=== PATIENT | male | born 1960 | race Caucasian/White ===

== ENCOUNTER → 2018-07-27 14:59 | Outpatient (CLI) | payer MEDICAID, SELFPAY ==
[2018-07-27 17:26] LABS: Absolute Lymphocyte Count 2.06 X10^3/ul (0.83-4.51); Absolute Neutrophil Count 5.9 X10^3/uL (2.0-7.7); Basophil# 0.04 X10^3/uL; Basophil% 0.5 % (0-1); Eosinophil# 0.06 X10^3/uL; Eosinophils% 0.7 % (0-5); Hematocrit 46.4 % (40-54); Hemoglobin 15.8 g/dl (13.0-16.5); Lymphocyte # 2.06 X10^3/ul (4.0); Lymphocyte % 23.2 % (19-41); Mean Corp Hgb Conc 34.1 g/gl (32-36); Mean Corpuscular Hgb 34.3 pg (27.0-32.0); Mean Corpuscular Volume 100.7 fL (80-94); Mean Platelet Vol. 9.8 fl (6.2-12.0); Monocyte# 0.79 X10^3/uL; Monocyte% 8.9 % (0-10); Neutrophil % 66.5 % (47-70); Platelet Count 184 K/mm3 (150-450); RBC Distribution Width CV 12.1 % (11.6-14.6); RBC Distribution Width SD 44.6 fl (35.1-43.9); Red Blood Count 4.61 M/mm3 (4.6-6.2); White Blood Count 8.9 K/mm3 (4.4-11.0)
[2018-07-27 17:27] LABS: POSITIVE COUNT NO; POSITIVE DIFFERENTIAL NO; POSITIVE MORPHOLOGY NO
[2018-07-27 17:29] LABS: International Normalized Ratio 1.1; Partial Thromboplast Time 28.1 Seconds (24.1-36.2); Prothrombin Time (Protime)PT. 13.7 SECONDS (11.7-14.9)
[2018-07-27 18:23] LABS: ALB/GLOB Ratio 0.9 RATIO (0.9-2.4); AST(SGOT) 29 U/L (15-37); Alanine Aminotransfer ALT/SGPT 53 U/L (16-61); Albumin, Serum 3.7 g/dL (3.2-5.0); Alkaline Phosphatase 138 U/L (45-117); Anion Gap 10 (5-15); BUN 8 mg/dL (7-18); BUN/Creat Ratio 7.4 RATIO (10-20); Calcium,Total 8.7 mg/dL (8.5-10.1); Chloride 104 mmol/L (98-107); Creatinine, Serum 1.08 mg/dL (0.70-1.30); EST Glomerular Filtration Rate 74 mL/min (>60); Est Glom Filt Rate - Afr Amer 90 mL/min (>60); Globulin 4.1 g/dL (2.2-4.2); Glucose 103 mg/dL (74-106); PSA,Total - Annual Screen 0.05 ng/mL (0.00-4.00); Protein, Total 7.8 g/dL (6.4-8.2); Sodium Level 140 mmol/L (136-145); Thyroid Stim Hormone (TSH) 1.01 uIU/mL (0.358-3.74)
== END ==
PROVIDERS: Family Provider Family Medicine Geriatric Medicine; PCP Family Medicine Geriatric Medicine; Visit Provider Family Medicine Geriatric Medicine
DX: Z01.818 Encounter for other preprocedural examination (principal); I10 Essential (primary) hypertension; Z12.5 Encounter for screening for malignant neoplasm of prostate; Z13.89 Encounter for screening for other disorder
CPT/HCPCS: 36415; 80053; 84153; 84443; 85025; 85610; 85730; G0103

== ENCOUNTER → 2018-07-30 05:38 | Outpatient (CLI) | payer MEDICAID, SELFPAY ==
--- NOTE | 2018-07-30 08:29 | STRESSREP ---
Stress Test Report Pharmacologic myocardial perfusion stress test. 58-year-old man with a history of abnormal EKG. Stress protocol: Resting EKG demonstrates normal sinus rhythm with a rate of [address] depression noted in leads II, III and aVF. 0.4 mg of regadenoson was infused per usual protocol followed by rapid intravenous saline flush injection continuous EKG monitoring was performed. The maximum heart rate attained was 114 bpm which was 71% maximum predicted heart rate the maximum workload was 1 metabolic equivalent. The resting blood pressure 138/74 with a peak blood pressure 158/88. No clinical angina was noted. Myocardial perfusion protocol. 12.0 mCi of technetium 99m sestamibi was injected at rest. 0.4 mg of regadenoson was infused per usual protocol peak infusion 36.0 mCi of technetium 99m sestamibi was injected stress images were obtained stress and rest images were reconstructed and compared in the short axis vertical long horizontal long axis. Gated images were also obtained Perfusion SPECT analysis: Review of the images demonstrated large defect noted in the basal to mid inferior wall as well as the lateral wall. The resting images demonstrate near complete reversibility of the above on the lateral wall as well as the mid inferior wall. The above is suggestive of inferolateral ischemia. Gated SPECT analysis: The gated ejection fraction is 44%. Severe inferior hypokinesis is present. Conclusion: Abnormal myocardial perfusion stress test with evidence of inferior lateral and mid inferior ischemia. Reduced ejection fraction.
== END ==
PROVIDERS: Family Provider Family Medicine Geriatric Medicine; PCP Family Medicine Geriatric Medicine; Referring Provider Family Medicine Geriatric Medicine; Visit Provider Family Medicine Geriatric Medicine
DX: I25.10 Atherosclerotic heart disease of native coronary artery without angina pectoris (principal); R94.31 Abnormal electrocardiogram [ECG] [EKG]
CPT/HCPCS: 78452; 93017; A9500; A4216; J2785

== ENCOUNTER → 2019-03-09 | Outpatient (CLI) | payer MEDICAID, SELFPAY ==
[2019-03-09 17:11] LABS: AST(SGOT) 22 U/L (15-37); Alanine Aminotransfer ALT/SGPT 39 U/L (16-61); Albumin, Serum 3.9 g/dL (3.2-5.0); Alkaline Phosphatase 140 U/L (45-117); Anion Gap 5 (5-15); BUN 13 mg/dL (7-18); BUN/Creat Ratio 12.6 RATIO (10-20); Calcium,Total 8.6 mg/dL (8.5-10.1); Chloride 107 mmol/L (98-107); Creatinine, Serum 1.03 mg/dL (0.70-1.30); EST Glomerular Filtration Rate 78 mL/min (>60); Est Glom Filt Rate - Afr Amer 95 mL/min (>60); Glucose 106 mg/dL (74-106); Potassium 3.7 mmol/L (3.5-5.1); Protein, Total 7.9 g/dL (6.4-8.2); Sodium Level 140 mmol/L (136-145); Thyroid Stim Hormone (TSH) 1.06 uIU/mL (0.358-3.74)
[2019-03-09 17:42] LABS: Absolute Lymphocyte Count 2.69 X10^3/ul (0.83-4.51); Basophil# 0.04 X10^3/uL; Basophil% 0.5 % (0-1); Eosinophil# 0.12 X10^3/uL; Eosinophils% 1.6 % (0-5); Hematocrit 46.7 % (40-54); Lymphocyte # 2.69 X10^3/ul (4.0); Lymphocyte % 35.3 % (19-41); Mean Corp Hgb Conc 34.3 g/gl (32-36); Mean Corpuscular Hgb 32.9 pg (27.0-32.0); Mean Corpuscular Volume 96.1 fL (80-94); Monocyte% 10.5 % (0-10); Neutrophil # 3.96 X10^3/uL (2.7-7.7); Platelet Count 179 K/mm3 (150-450); RBC Distribution Width CV 12.1 % (11.6-14.6); RBC Distribution Width SD 41.9 fl (35.1-43.9); Red Blood Count 4.86 M/mm3 (4.6-6.2); White Blood Count 7.6 K/mm3 (4.4-11.0)
[2019-03-09 17:44] LABS: POSITIVE COUNT NO; POSITIVE DIFFERENTIAL NO; POSITIVE MORPHOLOGY NO
== END | disposition home or self-care (01) ==
PROVIDERS: Family Provider Family Medicine Geriatric Medicine; PCP Family Medicine Geriatric Medicine; Visit Provider Family Medicine Geriatric Medicine
DX: R53.83 Other fatigue (principal)
CPT/HCPCS: 36415; 80053; 84443; 85025

== ENCOUNTER → 2019-08-04 14:29 | Outpatient (CLI) | payer MEDICAID, SELFPAY ==
[2018-08-04 09:56] VITALS: BMI 24.4
[2019-08-04 16:14] LABS: Hematocrit 42.7 % (40-54); Hemoglobin 14.6 g/dL (13.0-16.5); Mean Corp Hgb Conc 34.2 g/dL (32-36); Mean Corpuscular Volume 96.4 fL (80-94); Platelet Count 133 K/mm3 (150-450); RBC Distribution Width CV 12.2 % (11.6-14.6); RBC Distribution Width SD 43.4 fl (35.1-43.9); Red Blood Count 4.43 M/mm3 (4.6-6.2); White Blood Count 7.5 K/mm3 (4.4-11.0)
[2019-08-04 16:15] LABS: Absolute Lymphocyte Count 1.97 X10^3/uL (0.83-4.51); Absolute Neutrophil Count 4.7 X10^3/uL (2.0-7.7); Basophil# 0.04 X10^3/uL; Basophil% 0.5 % (0-1); Eosinophil# 0.13 X10^3/uL; Eosinophils% 1.7 % (0-5); Lymphocyte # 1.97 X10^3/ul (4.0); Lymphocyte % 26.4 % (19-41); Mean Platelet Vol. 9.9 fl (6.2-12.0); Monocyte# 0.63 X10^3/uL; Monocyte% 8.4 % (0-10); NRBC Flagged by Analyzer 0 % (0-5); Neutrophil # 4.68 X10^3/uL (2.7-7.7); Neutrophil % 62.9 % (47-70)
[2019-08-04 16:32] LABS: Vitamin D,25 Hydroxy 11.6 ng/mL (29.95-100.01)
[2019-08-04 16:35] LABS: ALB/GLOB Ratio 1.1 RATIO (0.9-2.4); AST(SGOT) 16 U/L (15-37); Alanine Aminotransfer ALT/SGPT 31 U/L (16-61); Albumin, Serum 3.8 g/dL (3.2-5.0); Alkaline Phosphatase 113 U/L (45-117); Anion Gap 5 (5-15); BUN 10 mg/dL (7-18); BUN/Creat Ratio 10.3 RATIO (10-20); Calcium,Total 8.7 mg/dL (8.5-10.1); Chloride 107 mmol/L (98-107); Creatinine, Serum 0.97 mg/dL (0.70-1.30); EST Glomerular Filtration Rate 84 mL/min (>60); Est Glom Filt Rate - Afr Amer 101 mL/min (>60); Globulin 3.6 g/dL (2.2-4.2); Glucose 124 mg/dL (74-106); PSA,Total - Annual Screen 0.04 ng/mL (0.00-4.00); Potassium 3.7 mmol/L (3.5-5.1); Protein, Total 7.4 g/dL (6.4-8.2); Sodium Level 139 mmol/L (136-145); Thyroid Stim Hormone (TSH) 0.92 uIU/mL (0.358-3.74)
== END ==
PROVIDERS: Family Provider Family Medicine Geriatric Medicine; PCP Family Medicine Geriatric Medicine; Visit Provider Family Medicine Geriatric Medicine
DX: I10 Essential (primary) hypertension (principal); R53.83 Other fatigue; Z12.5 Encounter for screening for malignant neoplasm of prostate
CPT/HCPCS: 36415; 80053; 82306; 84153; 84443; 85025; G0103

== ENCOUNTER 2020-03-06 15:41 | Emergency (ER) | payer MEDICAID, SELFPAY ==
[2019-10-18 10:29] VITALS: BMI 24.4
[2020-03-06] VITALS (8 sets, daily range): BP systolic 102–138; BP diastolic 77–94; PULSE 100–111; RESP 24–39; TEMP 35.8–37.1; O2SAT 83–100; BMI 24.9
--- NOTE | 2020-03-06 16:06 | NURSING ---
NO OLD EKGS
--- NOTE | 2020-03-06 16:08 | EKG12_ITS ---
Test Reason : CP Blood Pressure : / mmHG Vent. Rate : 100 BPM Atrial Rate : 100 BPM P-R Int : 168 ms QRS Dur : 114 ms QT Int : 396 ms P-R-T Axes : 053 064 186 degrees QTc Int : 510 ms Normal sinus rhythm Left ventricular hypertrophy with repolarization abnormality Cannot rule out Septal infarct , age undetermined Prolonged QT Abnormal ECG Confirmed by HAILE MOON ([id number]), loan expeditor DIANNE BRUCE ([id number]) on 03/12/2020 1:50:36 PM Referred By: ELIA Confirmed By:HAILE MOON
--- NOTE | 2020-03-06 16:10 | ED.DCSUM_ITS ---
History of Present Illness Chief Complaint: Chest Pain Informant: Patient Onset: Today Current Severity: Mild Maximum Severity: Moderate Narrative: Patient presents secondary to chest pain and shortness of breath. Patient states he woke up this morning with some central chest pressure. He also felt short of breath. He denies fever, chills, or cough. Patient does admit to being a light smoker throughout his life, but denies any history of lung disease. He does not use inhalers. In fact, the patient states he does not take any medication at home. Patient does have a history of aortic valve replacement and ascending aorta repair. He has a history of coronary disease, high cholesterol, and hypertension. When patient arrived to the ER was advised by nursing staff that his O2 sat was 85% on a nonrebreather mask. At the time of my examination his O2 sat was 98% on nonrebreather. - Past Medical History (1) Hypercholesteremia Status: Chronic (2) Ischemic cardiomyopathy Status: Chronic (3) H/O aortic valve replacement Status: Resolved Comment: AVR w/ # 29 [employer] 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 08/03/2012 (5) Hx of repair of ascending aorta Status: Resolved Past Medical History - Allergies and Home Meds Allergies/Adverse Reactions: Allergies varenicline [From Chantix] Adverse Reaction (Verified 03/06/20 15:45) upset stomach Primary Care Physician: Liu Potts Chi, MD [Primary Care Provider] - Prior records reviewed: Yes Past Medical History: - - Reviewed. 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 Smoking Status: Current every day smoker Review of Systems General: Denies: Chills, Fever Eyes: Denies: Visual changes - bilaterally ENT: Denies: Bilateral ear pain Cardiovascular: Reports: Chest pain Respiratory: Reports: Dyspnea. Denies: Cough, Sputum Gastrointestinal: Denies: Abdominal pain, Nausea, Vomiting, Diarrhea Genitourinary: Denies: Dysuria Musculoskeletal: Denies: Swelling, Extremity Pain Skin: Denies: Rash Neurological: Denies: Headache Hematologic: Denies: Easy bruising, Easy bleeding Allergy: Denies: Uticaria Physical Exam Vital Signs/Narrative: Vital Signs Temp Pulse Resp BP Pulse Ox 03/06/20 15:45 98.4 F 104 H 39 H 118/86 H 83 03/06/20 15:42 98.4 F 104 H 39 H 118/86 H 83 Inital Vital Signs reviewed: Yes General: Well nourished, Well developed Head: Normocephalic ENT: Moist mucous membranes Neck: Supple Cardiovascular: Tachycardia Respiratory: - - Tachypneic. Lung sounds grossly clear. Abdomen: Soft, Nontender Extremities: Nontender, No edema Skin: Normal color Neurological: Alert, - - Answers questions appropriately. Psychological: Normal affect Diagnostic/Tx/Re-eval Impressions Chest X-Ray 03/06/20 16:15 IMPRESSION: Diffuse interstitial pulmonary infiltrates. Electronically Signed: Alexander Perkins DO at 16:30 EDT Tel [phone], Service support , Chest CTA 03/06/20 16:58 IMPRESSION: 1. No evidence of pulmonary embolus. 2. No aortic dissection or aneurysm. 3. Cardiomegaly with evidence of aortic valve replacement. 4. Bilateral pleural effusions and atelectasis. 5. Perihilar groundglass infiltrates most marked at the lung bases. Question mild pulmonary congestion. Electronically Signed: Alexander Perkins DO at 17:43 EDT Tel [phone], Service support , 03/06/20 16:15 Chest 1 View (Portable) [RAD] Stat 03/06/20 16:58 CTA Chest W/WO Contrast [CT] Stat Laboratory Results 03/06/20 03/06/20 03/06/20 16:00 16:00 16:00 WBC 10.6 RBC 4.81 Hgb 15.5 Hct 46.5 MCV 96.7 H MCH 32.2 H MCHC 33.3 RDW Std Deviation 44.4 H RDW Coeff of Conchis 12.5 Plt Count 138 L MPV 9.8 Immature Gran % (Auto) 0.500 Neut % (Auto) 90.5 H Lymph % (Auto) 4.2 L Freestone % (Auto) 4.5 Eos % (Auto) 0.1 Baso % (Auto) 0.2 Absolute Neuts (auto) 9.6 H Absolute Lymphs (auto) 0.44 L Nucleated RBC % 0 Differential Comment SCANNED D-Dimer Quant (PE/DVT) 3.54 H* Sodium 140 Potassium 4.0 Chloride 105 Carbon Dioxide 22.0 Anion Gap 13 BUN 16 Creatinine 1.26 Estim Creat Clear Calc 53.55 Est GFR (MDRD) Af Amer 75 Est GFR (MDRD) Non-Af 62 BUN/Creatinine Ratio 12.7 Glucose 185 H Lactic Acid Calcium 8.6 Total Bilirubin 0.90 Direct Bilirubin 0.14 AST 27 ALT 20 Alkaline Phosphatase 83 Troponin I 2.570 H* Total Protein 7.1 Albumin 3.4 Globulin 3.7 COVID-19 (NICOLAS) 03/06/20 03/06/20 16:00 16:13 WBC RBC Hgb Hct MCV MCH MCHC RDW Std Deviation RDW Coeff of Conchis Plt Count MPV Immature Gran % (Auto) Neut % (Auto) Lymph % (Auto) Freestone % (Auto) Eos % (Auto) Baso % (Auto) Absolute Neuts (auto) Absolute Lymphs (auto) Nucleated RBC % Differential Comment D-Dimer Quant (PE/DVT) Sodium Potassium Chloride Carbon Dioxide Anion Gap BUN Creatinine Estim Creat Clear Calc Est GFR (MDRD) Af Amer Est GFR (MDRD) Non-Af BUN/Creatinine Ratio Glucose Lactic Acid 3.7 H* Calcium Total Bilirubin Direct Bilirubin AST ALT Alkaline Phosphatase Troponin I Total Protein Albumin Globulin COVID-19 (NICOLAS) Cancelled - EKG Initial EKG Interpretation: Sinus Rhythm - Sinus at 100 with LVH and repol abnormality. No old EKGs available for comparison. - Medical Decision Making Patient was given aspirin and 1 nitro with EMS. On repeat evaluation patient denied any chest pain. Test results are discussed with him. I was able to review an office visit from cardiology in September 2019. At that time he had not been seen in the office for over a year. He had had an abnormal outpatient stress test and because of his extensive cardiac history was advised to follow- up again with [facility]. I do not see any records in clinic sink if the patient ever followed up. Patient is currently refusing to let me contact his family to get further information. I did advise him that he may require transfer back to [facility] and he was agreeable to this. I spoke with Dr. Guo. Secondary to his cardiac history he does feel patient should be transferred back to [facility]. I was able to speak with the MICU physician and patient has been accepted in transfer. At this time patient has received Rocephin and Zithromax. His O2 sat is currently 100% on nonrebreather at 10 L. Although he had an elevated lactic acid fluid bolus has not been ordered until the Covid test returns. - Critical Care Time Critical care time (excluding procedures): 30-74 minutes ED Disposition - Plan for ED Patient: Disposition: [facility] - Main Diagnosis: Pneumonia, NSTEMI (non-ST elevated myocardial infarction) Referrals: Liu Potts Chi, MD [Primary Care Provider] -
--- NOTE | 2020-03-06 16:15 | RAD_ITS ---
STUDY: X-RAY CHEST REASON FOR EXAM: Male, 59 years old. Chest pain beginning this morning. Shortness of breath on nonrebreather. Altered consciousness. TECHNIQUE: Single AP portable view of the chest. COMPARISON: CT of the chest, May 17, 2017. FINDINGS: The lungs are well-expanded. There is vague interstitial infiltrates throughout both lungs, most marked at the right lung base. There is no demonstrated pleural abnormality. Sternal cerclage wires are present from a prior sternotomy. The heart is borderline enlarged. Normal mediastinum and margaret. Normal visualized pulmonary arteries. There is atherosclerotic calcification of the aortic arch with tortuosity. The thoracic spine is obscured by the mediastinum. Normal visualized ribs, clavicles, and shoulders. There is no demonstrated abnormality of the visualized soft tissue structures of the upper abdomen. RAD/Chest 1 View (Portable) IMPRESSION: Diffuse interstitial pulmonary infiltrates. Electronically Signed: Alexander Perkins DO at 16:30 EDT Tel [phone], Service support ,
[2020-03-06 16:20] LABS: Absolute Lymphocyte Count 0.44 X10^3/uL (0.83-4.51); Absolute Neutrophil Count 9.6 X10^3/uL (2.0-7.7); Basophil# 0.02 X10^3/uL; Basophil% 0.2 % (0-1); Eosinophil# 0.01 X10^3/uL; Eosinophils% 0.1 % (0-5); Hematocrit 46.5 % (40-54); Hemoglobin 15.5 g/dL (13.0-16.5); Lymphocyte # 0.44 X10^3/ul (4.0); Lymphocyte % 4.2 % (19-41); Mean Corp Hgb Conc 33.3 g/dL (32-36); Mean Corpuscular Hgb 32.2 pg (27.0-32.0); Mean Corpuscular Volume 96.7 fL (80-94); Mean Platelet Vol. 9.8 fl (6.2-12.0); Monocyte# 0.48 X10^3/uL; Monocyte% 4.5 % (0-10); NRBC Flagged by Analyzer 0 % (0-5); Neutrophil # 9.58 X10^3/uL (2.7-7.7); Neutrophil % 90.5 % (47-70); POSITIVE DIFFERENTIAL YES; Platelet Count 138 K/mm3 (150-450); RBC Distribution Width CV 12.5 % (11.6-14.6); RBC Distribution Width SD 44.4 fl (35.1-43.9); Red Blood Count 4.81 M/mm3 (4.6-6.2); White Blood Count 10.6 K/mm3 (4.4-11.0)
[2020-03-06 16:32] LABS: Differential Indicated SCAN CRITERIA MET
[2020-03-06 16:39] LABS: AST(SGOT) 27 U/L (15-37); Alanine Aminotransfer ALT/SGPT 20 U/L (16-61); Albumin, Serum 3.4 g/dL (3.2-5.0); Alkaline Phosphatase 83 U/L (45-117); Anion Gap 13 (5-15); BUN 16 mg/dL (7-18); BUN/Creat Ratio 12.7 RATIO (10-20); Bilirubin, Direct 0.14 mg/dL (0.00-0.30); Calcium,Total 8.6 mg/dL (8.5-10.1); Chloride 105 mmol/L (98-107); Creatinine, Serum 1.26 mg/dL (0.70-1.30); EST Glomerular Filtration Rate 62 mL/min (>60); Est Glom Filt Rate - Afr Amer 75 mL/min (>60); Estimated Creatinine Clearance 53.55 ml/min; Globulin 3.7 g/dL (2.2-4.2); Glucose 185 mg/dL (74-106); Protein, Total 7.1 g/dL (6.4-8.2); Sodium Level 140 mmol/L (136-145)
[2020-03-06 16:46] LABS: Lactic Acid 3.7 mmol/L (0.4-1.9)
[2020-03-06 16:55] LABS: D-Dimer Quantitative (DVT/PE) 3.54 FEU/ug/m (0.27-0.49)
--- NOTE | 2020-03-06 16:58 | CT_ITS ---
STUDY: CTA CHEST REASON FOR EXAM: Male, 59 years old. Chest pain. Shortness of breath. Altered consciousness. Hypoxia. History of dementia EtOH and prostate cancer. History of prior CABG procedure. RADIATION DOSAGE (If Supplied By Facility): CTDIvol = ( 12.34 ) mGy, DLP = ( 435.85 ) mGycm TECHNIQUE: The examination was performed with the intravenous administration of IV 75mL [id number]-[id number]. Post-processing of the angiographic images was performed, with multiplanar reformation and 3D reconstruction. Individualized dose optimization techniques were used for this CT. COMPARISON: Chest, March 06, 2020. FINDINGS: Normal enhancement of the main pulmonary artery and right and left pulmonary arteries. Normal enhancement of the bilateral peripheral pulmonary arteries. There is no demonstrated pulmonary embolism. There is atherosclerotic changes of the thoracic aorta. There is evidence of aortic valve replacement. There is no demonstrated aortic dissection. The heart is enlarged. There is evidence of median sternotomy consistent with CABG procedure. There is nonspecific subcentimeter mediastinal lymphadenopathy. Normal hilar regions. Normal visualized trachea and bronchi. The lungs are well expanded. There are small bilateral pleural effusions and atelectasis. There is vague patchy groundglass infiltrates in the central distribution most marked in the lower lobes although this may be partially due to atelectasis. As stated above. There is evidence of median sternotomy. The chest wall structures are otherwise grossly normal. Normal osseous structures. Normal visualized upper abdomen. CT/CTA Chest W/WO Contrast IMPRESSION: 1. No evidence of pulmonary embolus. 2. No aortic dissection or aneurysm. 3. Cardiomegaly with evidence of aortic valve replacement. 4. Bilateral pleural effusions and atelectasis. 5. Perihilar groundglass infiltrates most marked at the lung bases. Question mild pulmonary congestion. Electronically Signed: Alexander Perkins DO at 17:43 EDT Tel [phone], Service support ,
[2020-03-06 17:03] LABS: Differential Comment SCANNED
--- NOTE | 2020-03-06 18:13 | NURSING ---
CALLED [facility] , TALKED TO TEJINDER. FAXED FACESHEET CALLED [facility] TO TRANSMIT RAD AND CTS
[2020-03-06] MEDS: Ceftriaxone 1 GM/50 ML BAG IV (18:14)
--- NOTE | 2020-03-06 19:24 | ED.RN ---
Per Tino MCDOWELL, he offered to call both of pts next of kin and pt refused for us to call.
[2020-03-06] MEDS: 0.9% Normal Saline 1,000 ML 150 ML IV (20:00)
[2020-03-06 20:12] LABS: Reflex Lactate? Y
== END 2020-03-06 20:34 | disposition short-term general hospital (02) ==
PROVIDERS: Emergency Provider Emergency Medicine; PCP Family Medicine Geriatric Medicine
DX: J18.9 Pneumonia, unspecified organism (principal); I21.4 Non-ST elevation (NSTEMI) myocardial infarction; I25.10 Atherosclerotic heart disease of native coronary artery without angina pectoris; I25.5 Ischemic cardiomyopathy; I10 Essential (primary) hypertension; E78.00 Pure hypercholesterolemia, unspecified; F10.97 Alcohol use, unspecified with alcohol-induced persisting dementia; F17.200 Nicotine dependence, unspecified, uncomplicated; Z95.2 Presence of prosthetic heart valve; Z95.1 Presence of aortocoronary bypass graft
CPT/HCPCS: 71045; 71275; 80048; 80076; 83605; 84484; 85025; 85379; 87040; 87635; 93005; 96365; 96367; 99285; G2023; J7030; Q9967; A4216; U0002